=== PATIENT | female | born 1965 | race Caucasian/White ===

== ENCOUNTER → 2022-09-05 | Outpatient (REF) | payer OTHER ==
[~2022-09-05] MED LIST: ATEN50TA2 PO; LOSA50TA28 PO
== END ==
LOC: M SFHCADAM 12:42
PROVIDERS: ATTEND Physician Assistant
DX: R09.81 Nasal congestion (principal)

== ENCOUNTER → 2022-09-09 | Outpatient (CLI) | payer OTHER | LOC: M LABSMTC 10:50 | PROVIDERS: ATTEND Anesthesiology | DX: Z01.818 Encounter for other preprocedural examination (principal); Z11.52 Encounter for screening for COVID-19 ==

== ENCOUNTER 2022-09-12 08:48 | Day surgery (SDC) | payer OTHER ==
[~2022-09-12] VITALS: Ht 170.2 cm; Wt 108.3 kg
[~2022-09-12 08:48] MED LIST changes: +NS 1,000 ML IV ONE
[2022-09-12] MEDS ORDERED: propofoL 200 MG/20 ML VIAL As Ordered ONE (09:38)
[2022-09-12] MEDS ORDERED: LIDOCAINE 2% 100MG/5ML SDV (FOR ANES.) As Ordered ONE (09:38)
== END 2022-09-12 10:25 | disposition home or self-care (01) ==
LOC: M OPP 08:48
PROVIDERS: ATTEND Surgery
DX: Z12.11 Encounter for screening for malignant neoplasm of colon (principal); D12.6 Benign neoplasm of colon, unspecified; K64.9 Unspecified hemorrhoids; Z88.1 Allergy status to other antibiotic agents; Z79.899 Other long term (current) drug therapy; I10 Essential (primary) hypertension; F41.9 Anxiety disorder, unspecified; Z87.891 Personal history of nicotine dependence; Z87.42 Personal history of other diseases of the female genital tract; Z87.448 Personal history of other diseases of urinary system

== ENCOUNTER → 2025-01-25 | Outpatient (REF) | payer OTHER ==
[~2025-01-25] MED LIST changes: -NS 1,000 ML IV ONE
== END ==
LOC: M SFHCADAM 16:01
PROVIDERS: ATTEND Physician Assistant
DX: I10 Essential (primary) hypertension (principal); F41.1 Generalized anxiety disorder; E55.9 Vitamin D deficiency, unspecified; E78.2 Mixed hyperlipidemia; Z68.35 Body mass index [BMI] 35.0-35.9, adult

== ENCOUNTER → 2025-08-02 | Outpatient (CLI) | payer OTHER | LOC: M ADAMS 11:48 | PROVIDERS: ATTEND Physician Assistant | DX: M79.671 Pain in right foot (principal); M79.672 Pain in left foot ==

== ENCOUNTER → 2025-08-02 | Outpatient (REF) | payer OTHER | LOC: M SFHCADAM 11:45 | PROVIDERS: ATTEND Physician Assistant | DX: Z53.9 Procedure and treatment not carried out, unspecified reason (principal); F41.1 Generalized anxiety disorder; E55.9 Vitamin D deficiency, unspecified; E78.2 Mixed hyperlipidemia; N95.2 Postmenopausal atrophic vaginitis ==